=== PATIENT | male | born 1925 | race Caucasian/White ===

== ENCOUNTER → 2017-04-24 | Outpatient (CLI) | payer MEDICARE, BC ==
[2017-04-24 10:01] LABS: ABSOLUTE BASOPHILS # (AUTO) 0.1 10^3/uL (0.0-0.2); ABSOLUTE EOSINOPHILS # (AUTO) 0.2 10^3/uL (0.0-0.6); ABSOLUTE LYMPHOCYTES (AUTO) 1.8 10^3/uL (0.5-4.7); ABSOLUTE MONOCYTES (AUTO) 0.9 10^3/uL (0.1-1.4); BASOPHILS % (AUTO) 1.2 % (0-2); EOSINOPHILS % (AUTO) 2.3 % (0-6); HEMATOCRIT 51.9 % (37.9-51.0); HEMOGLOBIN 17.5 g/dL (13.5-17.0); LYMPHOCYTES % (AUTO) 25.5 % (13-45); MEAN CORPUSCULAR HEMOGLOBIN 31.8 pg (27.0-33.4); MEAN CORPUSCULAR HGB CONC 33.7 g/dL (32.0-36.0); MEAN CORPUSCULAR VOLUME 95 fl (80-97); MONOCYTES % (AUTO) 12.4 % (3-13); PLATELET COUNT 133 10^3/uL (150-450); RED BLOOD COUNT 5.49 10^6/uL (4.35-5.55); RED CELL DISTRIBUTION WIDTH 13.4 % (11.5-14.0); SEGMENTED NEUTROPHILS % (AUTO) 58.6 % (42-78); TOTAL CELLS COUNTED % (AUTO) 100 %; WHITE BLOOD COUNT 6.9 10^3/uL (4.0-10.5)
[2017-04-24 10:26] LABS: ALANINE AMINOTRANSFERASE 18 U/L (21-72); ALBUMIN 4.1 g/dL (3.5-5.0); ALKALINE PHOSPHATASE 86 U/L (38-126); ANION GAP 11 (5-19); ASPARTATE AMINO TRANSFERASE 27 U/L (17-59); BILIRUBIN,DIRECT 0.2 mg/dL (0.0-0.4); BILIRUBIN,TOTAL 0.6 mg/dL (0.2-1.3); BLOOD UREA NITROGEN 22 mg/dL (7-20); CALCIUM 10.1 mg/dL (8.4-10.2); CARBON DIOXIDE 34 mmol/L (22-30); CHLORIDE 97 mmol/L (98-107); CHOLESTEROL 192.26 mg/dL (0-200); GLUCOSE 104 mg/dL (75-110); POTASSIUM 4.2 mmol/L (3.6-5.0); SODIUM 141.8 mmol/L (137-145); TOTAL PROTEIN 6.7 g/dL (6.3-8.2); TRIGLYCERIDES 129 mg/dL (<150)
[2017-04-24 10:38] LABS: DIRECT LDL 114 mg/dL (<100)
== END ==
LOC: OD 08:52
PROVIDERS: ATTEND Internal Medicine
DX: I10 Essential (primary) hypertension (principal); E78.5 Hyperlipidemia, unspecified; I25.10 Atherosclerotic heart disease of native coronary artery without angina pectoris; R53.83 Other fatigue
CPT/HCPCS: 36415; 80053; 80061; 84443; 85025

== ENCOUNTER 2017-04-28 11:15 | Emergency (ER) | payer BC, MEDICARE ==
[2017-04-28 13:29] LABS: ABSOLUTE BASOPHILS # (AUTO) 0.1 10^3/uL (0.0-0.2); ABSOLUTE LYMPHOCYTES (AUTO) 1.3 10^3/uL (0.5-4.7); BASOPHILS % (AUTO) 0.6 % (0-2); EOSINOPHILS % (AUTO) 0.4 % (0-6); HEMATOCRIT 54.7 % (37.9-51.0); HEMOGLOBIN 18.7 g/dL (13.5-17.0); LYMPHOCYTES % (AUTO) 13.4 % (13-45); MEAN CORPUSCULAR HEMOGLOBIN 32.2 pg (27.0-33.4); MEAN CORPUSCULAR HGB CONC 34.1 g/dL (32.0-36.0); MEAN CORPUSCULAR VOLUME 94 fl (80-97); PLATELET COUNT 144 10^3/uL (150-450); RED CELL DISTRIBUTION WIDTH 13.6 % (11.5-14.0); SEGMENTED NEUTROPHILS % (AUTO) 74.6 % (42-78); TOTAL CELLS COUNTED % (AUTO) 100 %; WHITE BLOOD COUNT 9.4 10^3/uL (4.0-10.5)
--- NOTE | 2017-04-28 13:58 | ER Document Report ---
ED General - General Chief Complaint: Rectal Bleeding Stated Complaint: RECTAL BLEEDING Time Seen by Provider: 04/28/17 12:11 Mode of Arrival: Ambulatory Information source: Patient Notes: Patient states that for approximately the past 3 days he has had bright red blood in his stool when he wipes. Patient denies any pain. No abdominal cramping or nausea. He states he has some mild rectal discomfort. It is mainly when he wipes. He states his stools been brown. No black or tarry stool. He has not been dizzy or lightheaded. He does not take any blood thinners. Nothing makes symptoms better or worse. They have been intermittent. They are mild. Did not radiate. He does have a history of hemorrhoids. TRAVEL OUTSIDE OF THE [place] IN LAST 30 DAYS: No - Related Data Allergies/Adverse Reactions: No Known Allergies Allergy (Verified 04/28/17 11:15) Past Medical History - General Information source: Patient - Social History Smoking Status: Former Smoker Frequency of alcohol use: None Drug Abuse: None Family History: Reviewed & Not Pertinent Patient has suicidal ideation: No Patient has homicidal ideation: No - Past Medical History Cardiac Medical History: Reports: Hx Hypertension Pulmonary Medical History: Reports: Hx COPD, Hx Pneumonia Renal/ Medical History: Denies: Hx Peritoneal Dialysis - Immunizations Hx Pneumococcal Vaccination: 01/09/12 Review of Systems - Review of Systems Constitutional: denies: Chills, Fever Cardiovascular: denies: Chest pain, Palpitations Respiratory: denies: Cough, Short of breath -: Yes All other systems reviewed and negative Physical Exam - Vital signs Vitals: Temp Pulse Resp BP Pulse Ox 97.8 F 63 22 H 127/77 H 94 04/28/17 11:37 04/28/17 11:37 04/28/17 11:37 04/28/17 11:37 04/28/17 11:37 Interpretation: Normal - General General appearance: Appears well, Alert - HEENT Head: Normocephalic, Atraumatic Eyes: Normal Pupils: PERRL - Respiratory Respiratory status: No respiratory distress Chest status: Nontender Breath sounds: Normal Chest palpation: Normal - Cardiovascular Rhythm: Regular Heart sounds: Normal auscultation Murmur: No - Abdominal Inspection: Normal Distension: No distension Bowel sounds: Normal Tenderness: Nontender Organomegaly: No organomegaly - Rectal Stool: Bloody Hemorrhoids: External, Other - Patient appears to have a bleeding hemorrhoid rectal exam is otherwise unremarkable. - Back Back: Normal, Nontender - Extremities General upper extremity: Normal inspection, Nontender, Normal color, Normal ROM , Normal temperature General lower extremity: Normal inspection, Nontender, Normal color, Normal ROM , Normal temperature, Normal weight bearing. No: Norma's sign - Neurological Neuro grossly intact: Yes Cognition: Normal Orientation: AAOx4 [place] Coma Scale Eye Opening: Spontaneous [place] Coma Scale Verbal: Oriented Herbert Coma Scale Motor: Obeys Commands [place] Coma Scale Total: 15 Speech: Normal Motor strength normal: LUE, RUE, LLE, RLE Sensory: Normal - Psychological Associated symptoms: Normal affect, Normal mood - Skin Skin Temperature: Warm Skin Moisture: Dry Skin Color: Normal Course - Vital Signs Vital signs: Temp Pulse Resp BP Pulse Ox 97.8 F 63 22 H 127/77 H 94 04/28/17 11:37 04/28/17 11:37 04/28/17 11:37 04/28/17 11:37 04/28/17 11:37 - Laboratory Result Diagrams: 04/28/17 13:05 Laboratory results interpreted by me: 04/28/17 13:05 RBC 5.80 H Hgb 18.7 H Hct 54.7 H Plt Count 144 L Discharge - Discharge Clinical Impression: Hemorrhoids, external Condition: Stable Disposition: HOME, SELF-CARE Instructions: HC Hemorrhoid Cream ([facility]) Prescriptions: Pramoxine HCl/Mineral Oil/Znox [Anusol Ointment] 24 gm RC BID PRN 7 Days oint..gm. PRN Reason:
[2017-04-28 14:05] VITALS: BP 122/82
== END 2017-04-28 14:06 | disposition home or self-care (01) ==
LOC: ER 11:15
DX: K64.4 Residual hemorrhoidal skin tags (principal); I10 Essential (primary) hypertension; J44.9 Chronic obstructive pulmonary disease, unspecified
CPT/HCPCS: 36415; 85025; 99283

== ENCOUNTER 2017-07-07 12:03 | Observation (INO) | payer MEDICARE, BC ==
[2017-07-07 14:10] LABS: ABSOLUTE BASOPHILS # (AUTO) 0.1 10^3/uL (0.0-0.2); ABSOLUTE LYMPHOCYTES (AUTO) 0.8 10^3/uL (0.5-4.7); ABSOLUTE MONOCYTES (AUTO) 1.1 10^3/uL (0.1-1.4); ABSOLUTE NEUT (AUTO) 7.2 10^3/uL (1.7-8.2); BASOPHILS % (AUTO) 0.7 % (0-2); EOSINOPHILS % (AUTO) 0.3 % (0-6); HEMATOCRIT 46.6 % (37.9-51.0); HEMOGLOBIN 15.9 g/dL (13.5-17.0); LYMPHOCYTES % (AUTO) 8.3 % (13-45); MEAN CORPUSCULAR HEMOGLOBIN 31.3 pg (27.0-33.4); MEAN CORPUSCULAR HGB CONC 34.1 g/dL (32.0-36.0); MEAN CORPUSCULAR VOLUME 92 fl (80-97); MONOCYTES % (AUTO) 11.7 % (3-13); PLATELET COUNT 247 10^3/uL (150-450); RED BLOOD COUNT 5.06 10^6/uL (4.35-5.55); RED CELL DISTRIBUTION WIDTH 13.1 % (11.5-14.0); TOTAL CELLS COUNTED % (AUTO) 100 %; WHITE BLOOD COUNT 9.1 10^3/uL (4.0-10.5)
--- NOTE | 2017-07-07 14:28 | RADIOLOGY REPORT (SQ) ---
EXAM DESCRIPTION: CT HEAD WITHOUT COMPLETED DATE/TIME: 07/07/2017 2:07 pm REASON FOR STUDY: headache, visual disturbance, giant cell arteritis COMPARISON: None. TECHNIQUE: Axial images acquired through the brain without intravenous contrast. Images reviewed wi th bone, brain and subdural windows. Additional sagittal and coronal reconstructions were generated. Images stored on PACS. All CT scanners at this facility use dose modulation, iterative reconstruction, and/or weight based d osing when appropriate to reduce radiation dose to as low as reasonably achievable (ALARA). [facility]: Dose Right [facility]: CareDose [facility]: Dose Right [facility]: Teradose 4D [facility]: [employer] RADIATION DOSE: CT Rad equipment meets quality standard of care and radiation dose reduction techniq ues were employed. CTDIvol: 53.2 mGy. DLP: 1017 mGy-cm. mGy. LIMITATIONS: None. FINDINGS: VENTRICLES: Normal size and contour. CEREBRUM: No masses. No hemorrhage. No midline shift. No evidence for acute infarction. Normal gra y/white matter differentiation. No areas of low density in the white matter. CEREBELLUM: No masses. No hemorrhage. No alteration of density. No evidence for acute infarction. EXTRAAXIAL SPACES: No fluid collections. No masses. ORBITS AND GLOBE: No intra- or extraconal masses. Normal contour of globe without masses. CALVARIUM: No fracture. PARANASAL SINUSES: No fluid or mucosal thickening. SOFT TISSUES: No mass or hematoma. OTHER: No other significant finding. IMPRESSION: NORMAL BRAIN CT WITHOUT CONTRAST. EVIDENCE OF ACUTE STROKE: NO. COMMENT: Quality ID # [id number]: Final reports with documentation of one or more dose reduction techniques (e.g., Automated exposure control, adjustment of the mA and/or kV according to patient size, use of iterative reconstruction technique) TECHNICAL DOCUMENTATION: JOB ID: [id number] [employer]- All Rights Reserved Reading location - IP/workstation name: [email or web address]
[2017-07-07 14:33] LABS: ALANINE AMINOTRANSFERASE 32 U/L (21-72); ALBUMIN 3.6 g/dL (3.5-5.0); ALKALINE PHOSPHATASE 93 U/L (38-126); ANION GAP 7 (5-19); ASPARTATE AMINO TRANSFERASE 28 U/L (17-59); BILIRUBIN,DIRECT 0.4 mg/dL (0.0-0.4); BILIRUBIN,TOTAL 0.5 mg/dL (0.2-1.3); BLOOD UREA NITROGEN 17 mg/dL (7-20); C-REACTIVE PROTEIN 54.7 mg/L (<10.0); CALCIUM 10.1 mg/dL (8.4-10.2); CARBON DIOXIDE 35 mmol/L (22-30); CHLORIDE 96 mmol/L (98-107); GLUCOSE 119 mg/dL (75-110); SODIUM 138.4 mmol/L (137-145)
[2017-07-07] MEDS ORDERED: METHYLPREDNISOLONE INJ 125 MG/2 ML SDV IV ONE (14:49)
[2017-07-07 14:50] LABS: ERYTHROCYTE SEDIMENTATION RATE 66 mm/hr (0-20)
--- NOTE | 2017-07-07 14:51 | ER Document Report ---
ED General - General Chief Complaint: Eye Problem Stated Complaint: RIGHT EYE VISION ISSUES Time Seen by Provider: 07/07/17 14:31 Mode of Arrival: Ambulatory Information source: Patient, Dr. Office - Dr. Santiago's office Notes: 89-year-old male presents with complaints of sudden loss of vision of his right eye. Patient notes on he started having symptoms Friday there was blurry vision by today patient had lost vision completely in the right eye, he denies any other complaints except for mild headache Patient seen at eye doctor's office Dr. Rojas send the patient in for evaluation TRAVEL OUTSIDE OF THE [place] IN LAST 30 DAYS: No - HPI Onset: Last week Onset/Duration: Worse Quality of pain: Achy Severity: Mild Pain Level: 1 Associated symptoms: Headache, Other Exacerbated by: Denies Relieved by: Denies Similar symptoms previously: Yes Recently seen / treated by doctor: Yes - Related Data Allergies/Adverse Reactions: No Known Allergies Allergy (Verified 07/07/17 13:01) Past Medical History - Social History Smoking Status: Never Smoker Cigarette use (# per day): No Chew tobacco use (# tins/day): No Smoking Education Provided: No Frequency of alcohol use: None Drug Abuse: None Family History: Reviewed & Not Pertinent Patient has suicidal ideation: No Patient has homicidal ideation: No - Past Medical History Cardiac Medical History: Reports: Hx Hypertension Pulmonary Medical History: Reports: Hx COPD, Hx Pneumonia Renal/ Medical History: Denies: Hx Peritoneal Dialysis - Immunizations Hx Pneumococcal Vaccination: 01/09/12 Review of Systems - Review of Systems Notes: REVIEW OF SYSTEMS: CONSTITUTIONAL : Denies fever, chills, or sweats. Denies recent illness. EENT: Admits to right eye loss of vision CARDIOVASCULAR: Denies chest pain. Denies palpitations or racing or irregular heart beat. Denies ankle edema. RESPIRATORY: Denies cough, cold, or chest congestion. Denies shortness of breath, difficulty breathing, or wheezing. GASTROINTESTINAL: Denies abdominal pain or distention. Denies nausea, vomiting , or diarrhea. Denies blood in vomitus, stools, or per rectum. Denies black, tarry stools. Denies constipation. GENITOURINARY: Denies difficulty urinating, painful urination, burning, frequency, blood in urine, or discharge. MUSCULOSKELETAL: Denies back or neck pain or stiffness. Denies joint pain or swelling. SKIN: Denies rash, lesions or sores. HEMATOLOGIC : Denies easy bruising or bleeding. LYMPHATIC: Denies swollen, enlarged glands. NEUROLOGICAL: Admits to mild headache PSYCHIATRIC: Denies anxiety or stress. Denies depression, suicidal ideation, or homicidal ideation. ALL OTHER SYSTEMS REVIEWED AND NEGATIVE. Dictation was performed using [employer] voice recognition software PHYSICAL EXAMINATION: GENERAL: Well-appearing, well-nourished and in no acute distress. HEAD: Atraumatic, normocephalic. EYES: Pupils equal round and reactive to light, extraocular movements intact, sclera anicteric, conjunctiva are normal. Patient unable to see from the right eye ENT: Nares patent, oropharynx clear without exudates. Moist mucous membranes. NECK: Normal range of motion, supple without lymphadenopathy LUNGS: Breath sounds clear to auscultation bilaterally and equal. No wheezes rales or rhonchi. HEART: Regular rate and rhythm without murmurs ABDOMEN: Soft, nontender, nondistended abdomen. No guarding, no rebound. No masses appreciated. Musculoskeletal: Normal range of motion, no pitting or edema. No cyanosis. NEUROLOGICAL: Cranial nerves grossly intact. Normal speech, normal gait. Normal sensory, motor exams PSYCH: Normal mood, normal affect. SKIN: Warm, Dry, normal turgor, no rashes or lesions noted. Physical Exam - Vital signs Vitals: Temp Pulse Resp BP Pulse Ox 98.4 F 85 16 163/90 H 92 07/07/17 12:26 07/07/17 12:26 07/07/17 12:26 07/07/17 12:26 07/07/17 12:26 Course - Re-evaluation Re-evalutation: 07/07/17 14:50 Pt crp is elevated, spoke with Dr Rojas who requests IV soumedrol 250mg q6 for 12 doses and then dc on 100mg oral daily Dr Pierce paged 07/07/17 19:13 Patient was admitted to the hospitalist service, it appears primary care physician had signed out - Vital Signs Vital signs: Temp Pulse Resp BP Pulse Ox 97.8 F 84 18 151/97 H 94 07/07/17 17:27 07/07/17 17:27 07/07/17 17:27 07/07/17 17:27 07/07/17 17:27 - Laboratory Result Diagrams: 07/07/17 13:46 07/07/17 13:46 Laboratory results interpreted by me: 07/07/17 07/07/17 13:46 13:46 Seg Neutrophils % 79.0 H Lymphocytes % 8.3 L ESR 66 H Chloride 96 L Carbon Dioxide 35 H Glucose 119 H C-Reactive Protein 54.7 H - Diagnostic Test Radiology reviewed: Image reviewed - CT head without contrast notes no acute abnormality, Reports reviewed Discharge - Discharge Clinical Impression: Giant cell arteritis, Loss of vision Condition: Stable Disposition: ADMITTED INPATIENT Admitting Provider: Hospitalist Unit Admitted: Medical Floor
[2017-07-07] MEDS ORDERED: MAG HYDROX/AL HYDROX/SIMETH SUSP 30 ML UDCUP PO PRN (16:43)
[2017-07-07] MEDS ORDERED: ONDANSETRON HCL INJ/PF 4 MG/2 ML SDV IV PRN (16:43)
[2017-07-07] MEDS ORDERED: ACETAMINOPHEN 325 MG TABLET PO PRN (16:43)
[2017-07-07] MEDS ORDERED: IPRATROPIUM/ALBUTEROL 0.5-2.5 MG/3 ML AMPUL NEB PRN (16:43)
[2017-07-07] MEDS ORDERED: MAGNESIUM HYDROXIDE SUSP 30 ML UDCUP PO PRN (16:43)
[2017-07-07] MEDS ORDERED: HYDRALAZINE HCL INJ/PF 20 MG/1 ML SDV IV PRN (16:51)
--- NOTE | 2017-07-07 17:15 | PDOC H&P ---
History of Present Illness Admission Date/PCP: 07/07/17 16:19 VICTOR HUGO MEEKS, Patient complains of: Vision loss to Rt eye History of Present Illness: LARISSA CARRANZA JR is a 89 year old male with a past medical history of COPD, hypertension, arthritis, urinary retention who self caths 3 times daily as needed who presented to the emergency department from his eviction specialist with a report of right-sided vision loss since Friday. His vision loss was preceded by proximally 2 weeks of a frontal headache with right temporal discomfort with talking and chewing. His headache and discomfort have resolved but he continues to have decreased vision to his right eye. He denies fever or chills. The eviction specialist was concerned about potential giant cell arteritis. Therefore his CRP and sed rate were obtained and found to be moderately elevated. A head CT was normal; negative for acute CVA. He is referred to the hospital service for admission to provide IV glucocorticoids per ophthalmology's recommendations. Past Medical History Cardiac Medical History: Reports: Hypertension Denies: Coronary Artery Disease, Myocardial Infarction Pulmonary Medical History: Reports: Chronic Obstructive Pulmonary Disease (COPD) , Pneumonia EENT Medical History: Reports: None Neurological Medical History: Reports: None Endocrine Medical History: Reports: None Renal/ Medical History: Reports: None Malignancy Medical History: Reports: None GI Medical History: Reports: None Musculoskeltal Medical History: Reports: Arthritis Psychiatric Medical History: Reports: None Traumatic Medical History: Reports: None Hematology: Reports: None Infectious Medical History: Reports: None Past Surgical History Past Surgical History: Reports: Other - Prostate Social History Information Source: Patient Lives with: Alone Smoking Status: Former Smoker Cigarettes Packs Per Day: 0.5 Number of Years Smokin Last Time Smoked: 40 Frequency of Alcohol Use: None Hx Recreational Drug Use: No Drugs: None Hx Prescription Drug Abuse: No - Advance Directive Resuscitation Status: Do Not Intubate Surrogate healthcare decision maker:: The patient's son, Victor Hugo Carranza, Family History Family History: Reviewed & Not Pertinent Parental Family History Reviewed: Yes Children Family History Reviewed: Yes Sibling(s) Family History Reviewed.: Yes Medication/Allergy Home Medications: Aspirin [Aspirin 81 mg Chewable Tablet] 81 mg PO DAILY 07/07/17 Atenolol [Tenormin] 25 mg PO QHS 07/07/17 Finasteride [Proscar 5 mg Tablet] 5 mg PO QHS 07/07/17 Multivitamin [Tab-A-Marylou] 1 tab PO DAILY 07/07/17 Triamterene/Hydrochlorothiazid [Triamterene-Hctz 37.5-25 mg Tb] 1 tab PO DAILY 07/07/17 Allergies/Adverse Reactions: No Known Allergies Allergy (Verified 07/07/17 13:01) Review of Systems Constitutional: PRESENT: as per HPI, headache(s). ABSENT: chills, fever(s), weight gain, weight loss Eyes: PRESENT: as per HPI, visual disturbances Ears: ABSENT: hearing changes Nose, Mouth, and Throat: PRESENT: headache(s) Cardiovascular: ABSENT: chest pain, dyspnea on exertion, edema, orthropnea, palpitations Respiratory: ABSENT: cough, hemoptysis Gastrointestinal: ABSENT: abdominal pain, constipation, diarrhea, hematemesis, hematochezia, nausea, vomiting Genitourinary: ABSENT: dysuria, hematuria Musculoskeletal: ABSENT: joint swelling Integumentary: ABSENT: rash, wounds Neurological: ABSENT: abnormal gait, abnormal speech, confusion, dizziness, focal weakness, syncope Psychiatric: ABSENT: anxiety, depression, homidical ideation, suicidal ideation Endocrine: ABSENT: cold intolerance, heat intolerance, polydipsia, polyuria Hematologic/Lymphatic: ABSENT: easy bleeding, easy bruising Physical Exam Vital Signs: Temp Pulse Resp BP Pulse Ox 98.4 F 85 16 163/90 H 92 07/07/17 12:26 07/07/17 12:26 07/07/17 12:26 07/07/17 12:26 07/07/17 12:26 General appearance: PRESENT: no acute distress, well-developed, well-nourished, other - Overweight Head exam: PRESENT: atraumatic, normocephalic Eye exam: PRESENT: conjunctiva pink, EOMI, PERRLA, other - Bilateral lower eye bags. ABSENT: scleral icterus Ear exam: PRESENT: normal external ear exam Mouth exam: PRESENT: moist, tongue midline Neck exam: ABSENT: carotid bruit, JVD, lymphadenopathy, thyromegaly Respiratory exam: PRESENT: clear to auscultation nimesh, symmetrical, unlabored. ABSENT: rales, rhonchi, wheezes Cardiovascular exam: PRESENT: RRR, +S1, +S2. ABSENT: diastolic murmur, rubs, systolic murmur Pulses: PRESENT: normal dorsalis pedis pul Vascular exam: PRESENT: normal capillary refill GI/Abdominal exam: PRESENT: normal bowel sounds, soft. ABSENT: distended, guarding, mass, organolmegaly, rebound, tenderness Rectal exam: PRESENT: deferred Extremities exam: PRESENT: full ROM. ABSENT: calf tenderness, clubbing, pedal edema Neurological exam: PRESENT: alert, awake, oriented to person, oriented to place , oriented to time, oriented to situation, CN II-XII grossly intact. ABSENT: motor sensory deficit Psychiatric exam: PRESENT: appropriate affect, normal mood. ABSENT: homicidal ideation, suicidal ideation Skin exam: PRESENT: dry, intact, warm. ABSENT: cyanosis, rash Results Impressions: Head CT 07/07/17 13:12 IMPRESSION: NORMAL BRAIN CT WITHOUT CONTRAST. EVIDENCE OF ACUTE STROKE: NO. Assessment & Plan - Diagnosis (1) Giant cell arteritis Is this a current diagnosis for this admission?: Yes Plan: The patient is admitted with symptoms concerning for giant cell arteritis. He is noted to have an elevated sed rate of 66 and CRP of 54.7. The patient was sent from his opthamologist, Dr. Rojas for IV steroids. CT of the head is normal; no evidence of acute stroke. The patient will be admitted to the medical floor. He will be provided IV Solu-Medrol 250 mg every 6 hours 12 hours. I did speak with the on-call eviction specialist, Dr. Jackson, who did not recommend any additional workup. He does advise that the patient could be discharged following 24 hours of IV therapy with close follow-up for temporal artery biopsy and p.o. steroids. I spoke with Dr. Harris; he reports that temporal artery biopsies are not typically done inpatient, but he would be happy to conduct the procedure in the office once the patient has been discharged. The patient is ordered antiemetics as needed. Tylenol as needed for discomfort. Fall precautions. On discharge, the patient should be prescribed prednisone 100 mg p.o. daily until follow up wit opthamology. (2) Loss of vision Is this a current diagnosis for this admission?: Yes Plan: Secondary to #1. Plan as above. (3) Hypertension Is this a current diagnosis for this admission?: Yes Plan: We will continue the patient's home regiment with the exception of atenolol, which the patient states he has recently been instructed to discontinue. IV hydralazine is available as needed for blood pressure control. (4) Urinary retention Is this a current diagnosis for this admission?: Yes Plan: Continue Proscar. The patient may continue self cath every 8 hours as needed. - Time Time Spent: 50 to 70 Minutes Medications reviewed and adjusted accordingly: Yes Anticipated discharge: Home Within: within 72 hours - Inpatient Certification Based on my medical assessment, after consideration of the patient's comorbidities, presenting symptoms, or acuity I expect that the services needed warrant INPATIENT care.: Yes I certify that my determination is in accordance with my understanding of Medicare's requirements for reasonable and necessary INPATIENT services [42 CFR 412.3e].: Yes Medical Necessity: Other - IV steroids
[2017-07-07] MEDS: METHYLPREDNISOLONE INJ 125 MG/2 ML SDV IV SCH (21:57)
[2017-07-07] MEDS: FINASTERIDE 5 MG TABLET PO SCH (21:57)
[2017-07-07] MEDS: HEPARIN SOD (PORCINE) 5,000 UNIT/ML 1 ML SYRINGE SUBCUT SCH (21:58)
[2017-07-08] MEDS: HEPARIN SOD (PORCINE) 5,000 UNIT/ML 1 ML SYRINGE SUBCUT SCH ×3 (05:15→21:56)
[2017-07-08] MEDS: METHYLPREDNISOLONE INJ 125 MG/2 ML SDV IV SCH ×3 (05:15→17:16)
[2017-07-08 06:28] LABS: ABSOLUTE LYMPHOCYTES (AUTO) 0.7 10^3/uL (0.5-4.7); ABSOLUTE MONOCYTES (AUTO) 0.1 10^3/uL (0.1-1.4); ABSOLUTE NEUT (AUTO) 5.2 10^3/uL (1.7-8.2); BASOPHILS % (AUTO) 0.2 % (0-2); HEMATOCRIT 44.9 % (37.9-51.0); HEMOGLOBIN 15.2 g/dL (13.5-17.0); MEAN CORPUSCULAR HEMOGLOBIN 31.1 pg (27.0-33.4); MEAN CORPUSCULAR HGB CONC 33.8 g/dL (32.0-36.0); MEAN CORPUSCULAR VOLUME 92 fl (80-97); MONOCYTES % (AUTO) 1.7 % (3-13); PLATELET COUNT 214 10^3/uL (150-450); RED BLOOD COUNT 4.88 10^6/uL (4.35-5.55); RED CELL DISTRIBUTION WIDTH 13.2 % (11.5-14.0); SEGMENTED NEUTROPHILS % (AUTO) 87.1 % (42-78); TOTAL CELLS COUNTED % (AUTO) 100 %; WHITE BLOOD COUNT 5.9 10^3/uL (4.0-10.5)
[2017-07-08 06:47] LABS: ANION GAP 11 (5-19); BLOOD UREA NITROGEN 16 mg/dL (7-20); CALCIUM 9.7 mg/dL (8.4-10.2); CARBON DIOXIDE 32 mmol/L (22-30); CHLORIDE 96 mmol/L (98-107); GLUCOSE 153 mg/dL (75-110); SODIUM 138.5 mmol/L (137-145)
[2017-07-08] MEDS: MULTIVITAMIN TABLET PO SCH (10:46)
[2017-07-08] MEDS: DOCUSATE SODIUM 100 MG CAPSULE PO SCH (10:46)
[2017-07-08] MEDS: ASPIRIN 81 MG TABLET, CHEWABLE PO SCH (10:47)
[2017-07-08] MEDS: TRIAMTERENE/HYDROCHLOROTHIAZIDE 37.5-25 MG TABLET PO SCH (10:47)
[2017-07-08] MEDS: PANTOPRAZOLE SODIUM 40 MG VIAL IV SCH (10:47)
[2017-07-08] MEDS ORDERED: METHYLPREDNISOLONE INJ 125 MG/2 ML SDV IV SCH (12:00)
[2017-07-08] MEDS ORDERED: ALPRAZOLAM 0.25 MG TABLET PO PRN (12:07)
--- NOTE | 2017-07-08 15:50 | PDOC PROGRESS REPORT ---
Subjective Progress Note for:: 07/08/17 Subjective:: LARISSA LORENZANA JR is a 89 year old male with a past medical history of COPD, HTN, arthritis, urinary retention (self catheterization TID PRN) presented to the ED from his cuff setter overlock with a report of right-sided vision loss since Friday. His vision loss was preceded by approximately 2 weeks of a frontal headache with R temporal discomfort with talking and chewing. His headache and discomfort have resolved but he continues to have decreased vision to his right eye. He denies fever or chills. The cuff setter overlock was concerned about potential giant cell arteritis. CRP and sed rate were found to be moderately elevated. A head CT was normal; negative for acute CVA. He is referred to the hospital service for admission to provide IV glucocorticoids per ophthalmology's recommendations. The patient was seen this morning on rounds. He was complaining of R eye blurry vision, he is able to distinguish large shapes, but nothing else. When both eyes are open, he is able to compensate, but his gait is a little unsteady as a result. The patient will receive Solu-medrol 250mg IV q6hr today for 24 hours ( did not receive full 1 gram yesterday). Plan to discharge tomorrow morning. Reason For Visit: GIANT CELL ARTERITIS Physical Exam Vital Signs: Temp Pulse Resp BP Pulse Ox 97.6 F 97 16 153/87 H 97 07/07/17 23:05 07/08/17 14:22 07/08/17 14:22 07/08/17 11:31 07/08/17 14:22 Intake & Output 07/07/17 07/08/17 07/09/17 06:59 06:59 06:59 Intake Total 40 Balance 40 Weight 90.8 kg General appearance: PRESENT: no acute distress Eye exam: PRESENT: conjunctiva pink. ABSENT: PERRLA - 3mm R pupil sluggish to react to light. 3mm L pupil brisk reaction to light. Mouth exam: PRESENT: moist Neck exam: PRESENT: full ROM Respiratory exam: PRESENT: clear to auscultation nimesh, symmetrical, unlabored Pulses: PRESENT: normal radial pulses, normal dorsalis pedis pul Vascular exam: PRESENT: normal capillary refill GI/Abdominal exam: PRESENT: normal bowel sounds, soft. ABSENT: tenderness Rectal exam: PRESENT: deferred Extremities exam: PRESENT: full ROM, +1 edema - generalized Musculoskeletal exam: PRESENT: ambulatory, full ROM Neurological exam: PRESENT: alert, awake, oriented to person, oriented to place , oriented to time, oriented to situation, normal gait Psychiatric exam: PRESENT: anxious - patient reports feeling anxious, his hands are visibly trembling, appropriate affect Results Laboratory Results: 07/08/17 05:11 07/08/17 05:11 07/08/17 07/08/17 05:11 05:11 WBC 5.9 RBC 4.88 Hgb 15.2 Hct 44.9 MCV 92 MCH 31.1 MCHC 33.8 RDW 13.2 Plt Count 214 Seg Neutrophils % 87.1 H Lymphocytes % 11.0 L Monocytes % 1.7 L Eosinophils % 0.0 Basophils % 0.2 Absolute Neutrophils 5.2 Absolute Lymphocytes 0.7 Absolute Monocytes 0.1 Absolute Eosinophils 0.0 Absolute Basophils 0.0 Sodium 138.5 Potassium 4.0 Chloride 96 L Carbon Dioxide 32 H Anion Gap 11 BUN 16 Creatinine 0.80 Est GFR ( Amer) > 60 Est GFR (Non-Af Amer) > 60 Glucose 153 H Calcium 9.7 Impressions: Head CT 07/07/17 13:12 IMPRESSION: NORMAL BRAIN CT WITHOUT CONTRAST. EVIDENCE OF ACUTE STROKE: NO. Assessment & Plan - Diagnosis (1) Giant cell arteritis Is this a current diagnosis for this admission?: Yes Plan: The patient is admitted with symptoms concerning for giant cell arteritis. He is noted to have an elevated sed rate of 66 and CRP of 54.7. The patient was sent from his opthamologist, Dr. Rojas for IV steroids. CT of the head is normal; no evidence of acute stroke. The patient will be admitted to the medical floor. He will be provided IV Solu-Medrol 250 mg every [address] Jackson, on-call cuff setter overlock, did not recommend any additional workup. He does advise that the patient could be discharged following 24 hours of IV therapy with close follow-up for temporal artery biopsy and p.o. steroids. Dr. Harris reports that temporal artery biopsies are not typically done inpatient, but he would be happy to conduct the procedure in the office once the patient has been discharged. The patient is ordered antiemetics as needed. Tylenol as needed for discomfort. Fall precautions. On discharge, the patient should be prescribed prednisone 100 mg p.o. daily until follow up with opthamology. (2) Loss of vision Is this a current diagnosis for this admission?: Yes Plan: Plan as above (#1) (3) Hypertension Is this a current diagnosis for this admission?: Yes Plan: We will continue the patient's home regiment with the exception of atenolol, which the patient states he has recently been instructed to discontinue. IV hydralazine is available as needed for blood pressure control. (4) Urinary retention Is this a current diagnosis for this admission?: Yes Plan: Continue home dose Proscar. Patient allowed to self cath q8hr as needed (5) Anxiety Is this a current diagnosis for this admission?: Yes Plan: The patient reports feeling of anxiety. Per nursing staff, his hands are visibly trembling. The patient denies ETOH use, states the last time he ingested alcohol was over 1 yr ago Initiate low dose xanax 0.25mg PO q6hr - Time Time Spent with patient: 15-24 minutes Medications reviewed and adjusted accordingly: Yes Anticipated discharge: Home - Inpatient Certification Based on my medical assessment, after consideration of the patient's comorbidities, presenting symptoms, or acuity I expect that the services needed warrant INPATIENT care.: Yes I certify that my determination is in accordance with my understanding of Medicare's requirements for reasonable and necessary INPATIENT services [42 CFR 412.3e].: Yes Medical Necessity: Need for Pain Control - Plan Summary Plan Summary: Ultimately, the plan is to discharge the patient home with very close follow up to surgeon's office for a temporal artery biopsy
[2017-07-08] MEDS: FINASTERIDE 5 MG TABLET PO SCH (21:56)
[2017-07-09] MEDS: METHYLPREDNISOLONE INJ 125 MG/2 ML SDV IV SCH ×5 (00:01→22:59)
[2017-07-09] MEDS: HEPARIN SOD (PORCINE) 5,000 UNIT/ML 1 ML SYRINGE SUBCUT SCH ×3 (05:08→21:23)
[2017-07-09 06:43] LABS: ABSOLUTE BASOPHILS # (AUTO) 0.1 10^3/uL (0.0-0.2); ABSOLUTE LYMPHOCYTES (AUTO) 0.9 10^3/uL (0.5-4.7); ABSOLUTE MONOCYTES (AUTO) 0.4 10^3/uL (0.1-1.4); ABSOLUTE NEUT (AUTO) 15.6 10^3/uL (1.7-8.2); BASOPHILS % (AUTO) 0.5 % (0-2); HEMATOCRIT 45.8 % (37.9-51.0); HEMOGLOBIN 15.3 g/dL (13.5-17.0); LYMPHOCYTES % (AUTO) 5.2 % (13-45); MEAN CORPUSCULAR HEMOGLOBIN 30.5 pg (27.0-33.4); MEAN CORPUSCULAR HGB CONC 33.4 g/dL (32.0-36.0); MEAN CORPUSCULAR VOLUME 92 fl (80-97); MONOCYTES % (AUTO) 2.6 % (3-13); PLATELET COUNT 242 10^3/uL (150-450); RED BLOOD COUNT 5.01 10^6/uL (4.35-5.55); RED CELL DISTRIBUTION WIDTH 13.2 % (11.5-14.0); SEGMENTED NEUTROPHILS % (AUTO) 91.7 % (42-78); TOTAL CELLS COUNTED % (AUTO) 100 %
[2017-07-09 06:46] LABS: ANION GAP 12 (5-19); BLOOD UREA NITROGEN 22 mg/dL (7-20); CALCIUM 9.7 mg/dL (8.4-10.2); CARBON DIOXIDE 33 mmol/L (22-30); CHLORIDE 94 mmol/L (98-107); GLUCOSE 138 mg/dL (75-110)
--- NOTE | 2017-07-09 08:14 | PDOC DISCHARGE SUMMARY ---
General - Admit/Disc Date/PCP Admission Date/Primary Care Provider: 07/07/17 16:19 EVELYN MEEKS, Discharge Date: 07/09/17 - Discharge Diagnosis (1) Giant cell arteritis Is this a current diagnosis for this admission?: Yes Summary: Continue p.o. prednisone. Follow-up with surgery for biopsy in the morning. Follow-up with ophthalmology Dr. Rojas (2) Hypertension Is this a current diagnosis for this admission?: Yes Summary: Continue current medications (3) Loss of vision Is this a current diagnosis for this admission?: Yes Summary: Follow-up with ophthalmology - Additional Information Resuscitation Status: Do Not Intubate Discharge Diet: As Tolerated Discharge Activity: Activity As Tolerated Prescriptions: Prednisone [Deltasone 20 mg Tablet] 100 mg PO DAILY #60 tablet Home Medications: Aspirin [Aspirin 81 mg Chewable Tablet] 81 mg PO DAILY 07/07/17 Atenolol [Tenormin] 25 mg PO QHS 07/07/17 Finasteride [Proscar 5 mg Tablet] 5 mg PO QHS 07/07/17 Multivitamin [Tab-A-Marylou] 1 tab PO DAILY 07/07/17 Triamterene/Hydrochlorothiazid [Triamterene-Hctz 37.5-25 mg Tb] 1 tab PO DAILY 07/07/17 Prednisone [Deltasone 20 mg Tablet] 100 mg PO DAILY #60 tablet 07/09/17 History of Present Illness History of Present Illness: LARISSA LORENZANA JR is a 89 year old male Hospital Course Hospital Course: The patient was admitted directly from the emergency room because of possibility of temporal arteritis. He has received IV Solu-Medrol 250 mg 6 doses. Report reviewed of the hospitalist discussing with Dr. Gonzales to discharge patient on 100 mg p.o. daily of prednisone. He did quite well over the next 24 hours. There has not been significant change in his vision in the right eye but the left eye was stable and patient will be discharged home. Physical Exam Vital Signs: Temp Pulse Resp BP Pulse Ox 97.6 F 78 18 142/94 H 97 07/09/17 07:32 07/09/17 07:32 07/09/17 07:32 07/09/17 07:32 07/09/17 07:32 Intake & Output 07/08/17 07/09/17 07/10/17 06:59 06:59 06:59 Intake Total 40 462 Balance 40 462 Weight 90.8 kg 90.2 kg General appearance: PRESENT: no acute distress Head exam: PRESENT: atraumatic Eye exam: PRESENT: conjunctival injection Neck exam: PRESENT: carotid bruit Respiratory exam: PRESENT: rhonchi Cardiovascular exam: PRESENT: RRR, +S1, +S2 Pulses: PRESENT: +1 pedal pulses bilateral GI/Abdominal exam: PRESENT: normal bowel sounds, soft Extremities exam: PRESENT: full ROM Musculoskeletal exam: PRESENT: ambulatory Results Laboratory Results: 07/09/17 05:33 07/09/17 05:33 07/09/17 07/09/17 05:33 05:33 WBC 17.0 H D RBC 5.01 Hgb 15.3 Hct 45.8 MCV 92 MCH 30.5 MCHC 33.4 RDW 13.2 Plt Count 242 Seg Neutrophils % 91.7 H Lymphocytes % 5.2 L Monocytes % 2.6 L Eosinophils % 0.0 Basophils % 0.5 Absolute Neutrophils 15.6 H Absolute Lymphocytes 0.9 Absolute Monocytes 0.4 Absolute Eosinophils 0.0 Absolute Basophils 0.1 Sodium 139.0 Potassium 4.0 Chloride 94 L Carbon Dioxide 33 H Anion Gap 12 BUN 22 H Creatinine 0.93 Est GFR ( Amer) > 60 Est GFR (Non-Af Amer) > 60 Glucose 138 H Calcium 9.7 Impressions: Head CT 07/07/17 13:12 IMPRESSION: NORMAL BRAIN CT WITHOUT CONTRAST. EVIDENCE OF ACUTE STROKE: NO. Qualifiers - * PATIENT BEING DISCHARGED WITH ANY OF THE FOLLOWING DIAGNOSIS: No
[2017-07-09] MEDS ORDERED: PREDNISONE 20 MG TABLET PO SCH (10:00)
[2017-07-09] MEDS: MULTIVITAMIN TABLET PO SCH (10:03)
[2017-07-09] MEDS: DOCUSATE SODIUM 100 MG CAPSULE PO SCH (10:03)
[2017-07-09] MEDS: ASPIRIN 81 MG TABLET, CHEWABLE PO SCH (10:04)
[2017-07-09] MEDS: TRIAMTERENE/HYDROCHLOROTHIAZIDE 37.5-25 MG TABLET PO SCH (10:04)
[2017-07-09] MEDS: PANTOPRAZOLE SODIUM 40 MG VIAL IV SCH (10:05)
[2017-07-09] MEDS: FINASTERIDE 5 MG TABLET PO SCH (21:22)
[2017-07-09] MEDS ORDERED: (PENDING PHARMACY ID) (Atenolol [Tenormin] 25 MG) PO SCH (22:00)
[2017-07-09] MEDS ORDERED: ATENOLOL 50 MG TABLET PO SCH (22:00)
[2017-07-10] MEDS: METHYLPREDNISOLONE INJ 125 MG/2 ML SDV IV SCH ×3 (05:08→17:25)
[2017-07-10] MEDS: HEPARIN SOD (PORCINE) 5,000 UNIT/ML 1 ML SYRINGE SUBCUT SCH ×2 (05:08→14:04)
[2017-07-10 06:39] LABS: HEMATOCRIT 43.7 % (37.9-51.0); HEMOGLOBIN 14.8 g/dL (13.5-17.0); MEAN CORPUSCULAR HGB CONC 33.9 g/dL (32.0-36.0); MEAN CORPUSCULAR VOLUME 91 fl (80-97); PLATELET COUNT 248 10^3/uL (150-450); RED BLOOD COUNT 4.78 10^6/uL (4.35-5.55); RED CELL DISTRIBUTION WIDTH 13.1 % (11.5-14.0); WHITE BLOOD COUNT 17.8 10^3/uL (4.0-10.5)
[2017-07-10 06:50] LABS: ANION GAP 10 (5-19); BLOOD UREA NITROGEN 26 mg/dL (7-20); CALCIUM 9.1 mg/dL (8.4-10.2); CARBON DIOXIDE 34 mmol/L (22-30); CHLORIDE 95 mmol/L (98-107); GLUCOSE 154 mg/dL (75-110); SODIUM 139.4 mmol/L (137-145)
[2017-07-10 06:54] LABS: POTASSIUM 3.7 mmol/L (3.6-5.0)
[2017-07-10 07:05] LABS: ABSOLUTE LYMPHOCYTES# (MANUAL) 0.4 10^3/uL (0.5-4.7); ABSOLUTE MONOCYTES # (MANUAL) 0.7 10^3/uL (0.1-1.4); ABSOLUTE NEUTROPHILS# (MANUAL) 16.7 10^3/uL (1.7-8.2); BAND NEUTROPHILS % (MANUAL) 7 % (3-5); BASOPHILS % (MANUAL) 0 % (0-2); EOSINOPHILS % (MANUAL) 0 % (0-6); LYMPHOCYTES % (MANUAL) 2 % (13-45); MONOCYTES % (MANUAL) 4 % (3-13); SEGMENTED NEUTROPHILS % (MAN) 87 % (42-78); TOTAL CELLS COUNTED 100
[2017-07-10 07:06] LABS: PLATELET COMMENT ADEQUATE; RBC MORPHOLOGY COMMENT NORMO-CYTIC/CHROMIC
--- NOTE | 2017-07-10 08:26 | PDOC PROGRESS REPORT ---
Subjective Progress Note for:: 07/10/17 Subjective:: The patient states to feel well. Unfortunately he could not be discharged yesterday because of miscommunication and the need to complete 12 doses of Solu-Medrol IV. He will be discharged today after his last dose of Solu-Medrol as discussed with Dr. Rojas and he will continue on 100 mg of prednisone and have a temporal artery biopsy on Friday Reason For Visit: GIANT CELL ARTERITIS Physical Exam Vital Signs: Temp Pulse Resp BP Pulse Ox 97.6 F 62 17 139/88 H 98 07/09/17 23:22 07/09/17 23:22 07/09/17 23:22 07/09/17 23:22 07/09/17 23:22 Intake & Output 07/09/17 07/10/17 07/11/17 06:59 06:59 06:59 Intake Total 462 880 Balance 462 880 Weight 90.2 kg 91 kg General appearance: PRESENT: no acute distress Head exam: PRESENT: atraumatic Eye exam: PRESENT: conjunctival injection Neck exam: PRESENT: carotid bruit Respiratory exam: PRESENT: clear to auscultation nimesh Cardiovascular exam: PRESENT: RRR, +S1, +S2 Pulses: PRESENT: +1 pedal pulses bilateral GI/Abdominal exam: PRESENT: normal bowel sounds, soft Extremities exam: PRESENT: full ROM Musculoskeletal exam: PRESENT: ambulatory Neurological exam: PRESENT: alert, awake Results Laboratory Results: 07/10/17 06:06 07/10/17 06:06 07/10/17 07/10/17 06:06 06:06 WBC 17.8 H RBC 4.78 Hgb 14.8 Hct 43.7 MCV 91 MCH 31.0 MCHC 33.9 RDW 13.1 Plt Count 248 Seg Neutrophils % Not Reportable Lymphocytes % Not Reportable Monocytes % Not Reportable Eosinophils % Not Reportable Basophils % Not Reportable Absolute Neutrophils Not Reportable Absolute Lymphocytes Not Reportable Absolute Monocytes Not Reportable Absolute Eosinophils Not Reportable Absolute Basophils Not Reportable Sodium 139.4 Potassium 3.7 Chloride 95 L Carbon Dioxide 34 H Anion Gap 10 BUN 26 H Creatinine 1.02 Est GFR ( Amer) > 60 Est GFR (Non-Af Amer) > 60 Glucose 154 H Calcium 9.1 Impressions: Head CT 07/07/17 13:12 IMPRESSION: NORMAL BRAIN CT WITHOUT CONTRAST. EVIDENCE OF ACUTE STROKE: NO. Assessment & Plan - Diagnosis (1) Giant cell arteritis Is this a current diagnosis for this admission?: Yes Plan: Complete 12 doses of Solu-Medrol 250 IV. Start prednisone p.o. 100 mg daily (2) Hypertension Is this a current diagnosis for this admission?: Yes Plan: Continue current medications (3) Loss of vision Is this a current diagnosis for this admission?: Yes Plan: Temporal artery biopsy. Prednisone. Follow-up with ophthalmology
[2017-07-10] MEDS ORDERED: LANSOPRAZOLE 30 MG TAB.RAP.DR PO ONE (09:00)
[2017-07-10] MEDS ORDERED: ONDANSETRON HCL INJ/PF 4 MG/2 ML SDV IV PRN (09:00)
[2017-07-10] MEDS: DOCUSATE SODIUM 100 MG CAPSULE PO SCH (09:15)
[2017-07-10] MEDS: MULTIVITAMIN TABLET PO SCH (09:19)
[2017-07-10] MEDS: ASPIRIN 81 MG TABLET, CHEWABLE PO SCH (09:19)
[2017-07-10] MEDS: TRIAMTERENE/HYDROCHLOROTHIAZIDE 37.5-25 MG TABLET PO SCH (09:19)
[2017-07-10 17:38] VITALS: BP 151/71
[2017-07-11] MEDS ORDERED: LANSOPRAZOLE 30 MG TAB.RAP.DR PO SCH (06:00)
== END 2017-07-10 17:58 | disposition home or self-care (01) ==
LOC: ER 12:03 → EH 16:19 → INTOOBSV 16:19 → 4S 18:47
PROVIDERS: ADMIT Internal Medicine; ATTEND Internal Medicine
DX: M31.6 Other giant cell arteritis (principal); I10 Essential (primary) hypertension; H54.61 Unqualified visual loss, right eye, normal vision left eye; R33.9 Retention of urine, unspecified; R26.81 Unsteadiness on feet; H53.8 Other visual disturbances; R60.0 Localized edema; F41.9 Anxiety disorder, unspecified; Z87.891 Personal history of nicotine dependence; Z79.899 Other long term (current) drug therapy; Z79.82 Long term (current) use of aspirin
CPT/HCPCS: 99285; 96374; 36415 ×4; 82962; 85025 ×4; 85652; 86140; 80048 ×3; 80053; 70450; 97167; A9270 ×18; J1644 ×4; J2930 ×4; C9113 ×2; J3490 ×4; G8987; G8988; G8989; G0378; J7512; S0164

== ENCOUNTER 2017-07-17 10:27 | Day surgery (SDC) | payer MEDICARE, BC ==
[~2017-07-17 10:27] MED LIST: DEXTROSE 5%-1/2 NORMAL SALINE 1,000 ML IV PRN
[2017-07-17 11:44] LABS: HEMATOCRIT 53.6 % (37.9-51.0); HEMOGLOBIN 17.8 g/dL (13.5-17.0); MEAN CORPUSCULAR HEMOGLOBIN 30.3 pg (27.0-33.4); MEAN CORPUSCULAR HGB CONC 33.1 g/dL (32.0-36.0); MEAN CORPUSCULAR VOLUME 91 fl (80-97); PLATELET COUNT 259 10^3/uL (150-450); RED BLOOD COUNT 5.87 10^6/uL (4.35-5.55); RED CELL DISTRIBUTION WIDTH 13.9 % (11.5-14.0); WHITE BLOOD COUNT 21.3 10^3/uL (4.0-10.5)
[2017-07-17] MEDS ORDERED: LIDOCAINE 2% INJ-PF (20 MG/ML) 10 ML AMPUL ONE (11:57)
[2017-07-17] MEDS ORDERED: MIDAZOLAM 2 MG/2 ML INJ ONE (11:58)
[2017-07-17] MEDS ORDERED: FENTANYL CITRATE INJ/PF 100 MCG/2 ML AMPUL ONE (11:58)
[2017-07-17] MEDS ORDERED: PROPOFOL INJ 200 MG/20 ML VIAL IV ONE (11:58)
[2017-07-17 12:01] LABS: ANION GAP 10 (5-19); BLOOD UREA NITROGEN 39 mg/dL (7-20); CALCIUM 9.2 mg/dL (8.4-10.2); CARBON DIOXIDE 37 mmol/L (22-30); CHLORIDE 92 mmol/L (98-107); GLUCOSE 102 mg/dL (75-110); POTASSIUM 3.5 mmol/L (3.6-5.0); SODIUM 138.8 mmol/L (137-145)
[2017-07-17] MEDS: BUPIVACAINE HCL 0.25 % INJ/PF (2.5 MG/1 ML) 30 ML VIAL ONE ×2 (12:41→12:50)
[2017-07-17] MEDS: LIDOCAINE 0.5% INJ-PF (5 MG/ML) 50 ML SDV ONE ×2 (12:42→12:50)
[2017-07-17] MEDS ORDERED: DIPHENHYDRAMINE HCL 50 MG/ML VIAL IV PRN (12:56)
[2017-07-17] MEDS ORDERED: PROMETHAZINE HCL INJ 25 MG/1 ML VIAL IV PRN ×2 (12:56)
[2017-07-17] MEDS ORDERED: OXYCODONE-ACETAMINOPHEN 5-325 MG TABLET PO PRN ×2 (12:56)
[2017-07-17] MEDS ORDERED: MORPHINE SULFATE 10 MG/ML INJ IV PRN (12:56)
[2017-07-17] MEDS ORDERED: ONDANSETRON HCL INJ/PF 4 MG/2 ML SDV IV PRN (12:56)
[2017-07-17] MEDS ORDERED: FENTANYL CITRATE INJ/PF 100 MCG/2 ML AMPUL IV PRN ×3 (12:56)
[2017-07-17] MEDS ORDERED: MEPERIDINE HCL/PF INJ 25 MG/1 ML DISP.SYRIN IV PRN (12:56)
--- NOTE | 2017-07-17 13:28 | Discharge Summary ---
Discharge Summary (SDC) - Discharge Final Diagnosis: #1 blindness and headache. 2. COPD. 3. Hypertension. Date of Surgery: 07/17/17 Discharge Date: 07/17/17 Condition: Fair Treatment or Instructions: Discharge home [after recovery per ASU criteria]. Diet ,,as tolerated, when fully awake advance as tolerated. Activities within moderation encouraged. Follow up in my office by appointment in about [1 week]. Call for appointment. Leave wounds [covered], [keep clean and dry, until office visit in 1 week]. Meds per med rec. OTC pain meds. Hold of on school/work [until evaluation in office]. May shower [in 48 hrs], [try to keep operated area as dry as possible]. Referrals: EVELYN MEEKS MD [Primary Care Provider] - Discharge Diet: As Tolerated Respiratory Treatments at Home: Deep Breathing/Coughing Discharge Activity: Activity As Tolerated Report the Following to Your Physician Immediately: Shortness of Breath, Unusual Bleeding
--- NOTE | 2017-07-17 13:30 | Operative Report ---
Operative Report DATE OF SURGERY: 07/17/17 PREOPERATIVE DIAGNOSIS: #1 blindness and headache. 2. COPD. 3. Hypertension. POSTOPERATIVE DIAGNOSIS: #1 blindness and headache. 2. COPD. 3. Hypertension. OPERATION: Right temporal artery biopsy. SURGEON: CHAN BELLA OPTOMETRIST: None. ANESTHESIA: LMAC TISSUE REMOVED OR ALTERED: Portion of right temporal artery. COMPLICATIONS: None. ESTIMATED BLOOD LOSS: 2 mL. INTRAOPERATIVE FINDINGS: Of a thick-walled and probably atherosclerotic temporal artery. A segment about 2.5 cm long was harvested and submitted for pathology. Fresh. PROCEDURE: PROCEDURE: The right temporal area was prepared with Betadine and draped out with sterile linen. After the"universal time-out", in which it was confirmed that the patient [did not need antibiotic], the procedure commenced. The patient was appropriately anesthetized. The topographic location of the temporal artery was identified using a Doppler instrument and also palpation. It was marked in ink.. A dilute solution of local anesthesia was generously infiltrated in the skin and subcutaneous tissues above and around the area. An incision was made as marked. This went through to the subcutaneous tissues. Dissection now proceeded By spreading a hemostat to reveal the artery beneath the fascia. The artery was dissected out for a distance of about 2.5 cm. Both ends were clamped. The intervening section was excised and carefully submitted for pathology in formalin. Both ends were now suture ligated using 5-0 Prolene suture The wound was now closed using [a single layer of continuous sutures. These were of 5-0 Prolene. A sterile dressing was applied and the procedure concluded.
--- NOTE | 2017-07-17 13:34 | EKG REPORT ---
SEVERITY:- ABNORMAL ECG - SINUS RHYTHM VENTRICULAR TRIGEMINY RIGHT BUNDLE BRANCH BLOCK : Confirmed by: Austin Taylor MD 17-Jul-2017 13:34:01
[2017-07-17 15:12] VITALS: BP 136/68
== END 2017-07-17 15:00 | disposition home or self-care (01) ==
LOC: OROUT 10:27
PROVIDERS: ATTEND Surgery
DX: M31.6 Other giant cell arteritis (principal); R51 Headache; I70.8 Atherosclerosis of other arteries; H54.61 Unqualified visual loss, right eye, normal vision left eye; J44.9 Chronic obstructive pulmonary disease, unspecified; I10 Essential (primary) hypertension; Z79.899 Other long term (current) drug therapy; Z79.82 Long term (current) use of aspirin
CPT/HCPCS: 36415; 85027; 80048; 88305 ×2; 93005; 93010; 37609; J2250; J3010; J3490 ×2; J2704; 352

== ENCOUNTER 2017-07-27 04:12 | Inpatient (IN) | payer MEDICARE, BC ==
[2017-07-27] MEDS ORDERED: IPRATROPIUM/ALBUTEROL 0.5-2.5 MG/3 ML AMPUL NEB ONE ×3 (04:19→04:48)
[2017-07-27] MEDS ORDERED: FUROSEMIDE INJ/PF 40 MG/4 ML SDV IV ONE (04:25)
[2017-07-27] MEDS ORDERED: NITROGLYCERIN 0.4 MG/TAB 25 TAB/BOTTLE SL STA (04:26)
[2017-07-27] MEDS ORDERED: FUROSEMIDE INJ/PF 40 MG/4 ML SDV ONE (04:28)
[2017-07-27] MEDS ORDERED: NITROGLYCERIN 0.4 MG/TAB 25 TAB/BOTTLE ONE (04:29)
--- NOTE | 2017-07-27 04:29 | ER Document Report ---
ED General - General Stated Complaint: RESPIRATORY DISTRESS Time Seen by Provider: 07/27/17 04:14 Mode of Arrival: Medic Information source: Patient, Emergency Med Personnel - 20 mg cardizem and neb enroute TRAVEL OUTSIDE OF THE [place] IN LAST 30 DAYS: No - HPI Patient complains to provider of: sob Onset: Just prior to arrival Onset/Duration: Sudden Quality of pain: No pain Severity: Severe Associated symptoms: Shortness of breath, Other - sweaty Exacerbated by: Denies Relieved by: Denies Similar symptoms previously: No Recently seen / treated by doctor: Yes - dxed with pneumonia recently Notes: She has COPD and is on home oxygen at night. Throughout the day today he became increasingly worse. He was on steroids as an outpatient for his COPD. Paramedics state that when he got there patient was in A. fib with RVR which he does not have a history of. He had rhonchi throughout on his physical examination. Patient was given Cardizem and DuoNeb treatment. When he presented here he was on BiPAP. Prior to arrival to the emergency department Blood pressure was 124/70 heart rate was 150s patient was 82%. - Related Data Allergies/Adverse Reactions: No Known Allergies Allergy (Verified 07/27/17 05:11) Past Medical History - General Information source: Patient, Relative - Social History Smoking Status: Former Smoker Frequency of alcohol use: None Drug Abuse: None Lives with: Family Family History: Reviewed & Not Pertinent - Past Medical History Cardiac Medical History: Reports: Hx Hypertension Denies: Hx Coronary Artery Disease, Hx Heart Attack Pulmonary Medical History: Reports: Hx Asthma, Hx Bronchitis, Hx COPD, Hx Pneumonia Neurological Medical History: Denies: Hx Cerebrovascular Accident, Hx Seizures Endocrine Medical History: Reports: None Renal/ Medical History: Reports: None. Denies: Hx Peritoneal Dialysis Malignancy Medical History: Reports None GI Medical History: Reports: None Musculoskeltal Medical History: Reports Hx Arthritis Past Surgical History: Reports: Other - Prostate - Immunizations Hx Diphtheria, Pertussis, Tetanus Vaccination: Yes Hx Pneumococcal Vaccination: 01/09/12 Physical Exam - Vital signs Vitals: Pulse Resp Pulse Ox 114 H 47 H 86 L 07/27/17 04:14 07/27/17 04:14 07/27/17 04:14 - Notes Notes: PHYSICAL EXAMINATION: GENERAL: Patient is in moderate respiratory distress with BiPAP. His skin is clammy to touch. HEAD: Atraumatic, normocephalic. EYES: Pupils equal round and reactive to light, extraocular movements intact, sclera anicteric, conjunctiva are normal. ENT: Nares patent. NECK: Normal range of motion, supple without lymphadenopathy LUNGS: Breath sounds clear to auscultation bilaterally and equal. No wheezes rales or rhonchi. HEART: Irregularly irregular and tachycardic ABDOMEN: Soft, nontender, nondistended abdomen. No guarding, no rebound. No masses appreciated. Musculoskeletal: Normal range of motion, no pitting or edema. No cyanosis. NEUROLOGICAL: Cranial nerves grossly intact. Normal sensory, motor exams PSYCH: Normal mood, normal affect. SKIN: Warm, Dry, normal turgor, no rashes or lesions noted. Course - Re-evaluation Re-evalutation: 07/27/17 04:55 Chest X-Ray 07/27/17 04:15 IMPRESSION: 1. Patchy bibasilar and right upper lung airspace opacity may be related to developing pneumonia. Continued radiographic follow-up to resolution recommended. 07/27/17 05:02 Chemistries hemolyzed. Lab is here drawing them. Patient's family members are here and I have talked to them to let them know what is going on. 07/27/17 05:19 DM that I called the patient's power of privacy attorney Nick was also the patient's son. I explained to him that the patient is on BiPAP. I did explain that if he continues to become fatigued, he may need intubation. I explained that to him. I stated that in light of fact that the patient has COPD as well as pneumonia that one of the battles will be getting him back off this "breathing machine". Nick stated that his father does not want to be intubated as they had had discussions regarding this. His brothers share power of privacy attorney Elvira Romero called them and everyone is in agreement that the father will now be DO NOT INTUBATE. 07/27/17 05:47 Labs- All tests 24 hr 07/27/17 07/27/17 07/27/17 04:15 04:15 04:15 WBC 6.0 RBC 5.52 Hgb 17.3 H Hct 52.1 H MCV 94 MCH 31.4 MCHC 33.3 RDW 14.5 H Plt Count 139 L Total Counted 100 Seg Neutrophils % Not Reportable Seg Neuts % (Manual) 18 L Band Neutrophils % 50 H Lymphocytes % Not Reportable Lymphocytes % (Manual) 13 Atypical Lymphs % 2 Monocytes % Not Reportable Monocytes % (Manual) 8 Eosinophils % Not Reportable Eosinophils % (Manual) 0 Basophils % Not Reportable Basophils % (Manual) 0 Metamyelocytes % 7 H Myelocytes % 1 H Promyelocytes % 1 H Absolute Neutrophils Not Reportable Abs Neuts (Manual) 4.6 Absolute Lymphocytes Not Reportable Abs Lymphs (Manual) 0.9 Absolute Monocytes Not Reportable Abs Monocytes (Manual) 0.5 Absolute Eosinophils Not Reportable Absolute Eos (Manual) 0.0 Absolute Basophils Not Reportable Abs Basophils (Manual) 0.0 Toxic Granulation 1+ Toxic Vacuolation PRESENT Large Platelets PRESENT Platelet Comment DECREASED Polychromasia SLIGHT Anisocytosis SLIGHT PT INR Carbonic Acid HCO3/H2CO3 Ratio ABG pH ABG pCO2 ABG pO2 ABG HCO3 ABG Total CO2 ABG O2 Saturation ABG Base Excess VBG pH VBG pCO2 VBG HCO3 VBG Base Excess FiO2 Sodium Cancelled Potassium Cancelled Chloride Cancelled Carbon Dioxide Cancelled Anion Gap Cancelled BUN Cancelled Creatinine Cancelled Est GFR ( Amer) Cancelled Est GFR (Non-Af Amer) Cancelled Glucose Cancelled Calcium Cancelled Total Bilirubin Cancelled Direct Bilirubin Cancelled Neonat Total Bilirubin Cancelled Neonat Direct Bilirubin Cancelled Neonat Indirect Bili Cancelled AST Cancelled ALT Cancelled Alkaline Phosphatase Cancelled Troponin I Cancelled NT-Pro-B Natriuret Pep Cancelled Total Protein Cancelled Albumin Cancelled 07/27/17 07/27/17 07/27/17 04:15 05:03 05:08 WBC RBC Hgb Hct MCV MCH MCHC RDW Plt Count Total Counted Seg Neutrophils % Seg Neuts % (Manual) Band Neutrophils % Lymphocytes % Lymphocytes % (Manual) Atypical Lymphs % Monocytes % Monocytes % (Manual) Eosinophils % Eosinophils % (Manual) Basophils % Basophils % (Manual) Metamyelocytes % Myelocytes % Promyelocytes % Absolute Neutrophils Abs Neuts (Manual) Absolute Lymphocytes Abs Lymphs (Manual) Absolute Monocytes Abs Monocytes (Manual) Absolute Eosinophils Absolute Eos (Manual) Absolute Basophils Abs Basophils (Manual) Toxic Granulation Toxic Vacuolation Large Platelets Platelet Comment Polychromasia Anisocytosis PT 16.6 H INR 1.28 Carbonic Acid HCO3/H2CO3 Ratio ABG pH ABG pCO2 ABG pO2 ABG HCO3 ABG Total CO2 ABG O2 Saturation ABG Base Excess VBG pH 7.21 L VBG pCO2 81.8 H* VBG HCO3 31.7 VBG Base Excess 0.3 FiO2 Sodium 134.2 L Potassium 4.2 Chloride 90 L Carbon Dioxide 26 Anion Gap 18 BUN 49 H Creatinine 1.74 H Est GFR ( Amer) 45 L Est GFR (Non-Af Amer) 37 L Glucose 226 H Calcium 9.3 Total Bilirubin 2.0 H Direct Bilirubin 0.8 H Neonat Total Bilirubin Not Reportable Neonat Direct Bilirubin Not Reportable Neonat Indirect Bili Not Reportable AST 92 H ALT 101 H Alkaline Phosphatase 75 Troponin I NT-Pro-B Natriuret Pep Total Protein 5.4 L Albumin 2.8 L 07/27/17 05:25 WBC RBC Hgb Hct MCV MCH MCHC RDW Plt Count Total Counted Seg Neutrophils % Seg Neuts % (Manual) Band Neutrophils % Lymphocytes % Lymphocytes % (Manual) Atypical Lymphs % Monocytes % Monocytes % (Manual) Eosinophils % Eosinophils % (Manual) Basophils % Basophils % (Manual) Metamyelocytes % Myelocytes % Promyelocytes % Absolute Neutrophils Abs Neuts (Manual) Absolute Lymphocytes Abs Lymphs (Manual) Absolute Monocytes Abs Monocytes (Manual) Absolute Eosinophils Absolute Eos (Manual) Absolute Basophils Abs Basophils (Manual) Toxic Granulation Toxic Vacuolation Large Platelets Platelet Comment Polychromasia Anisocytosis PT INR Carbonic Acid 1.56 H HCO3/H2CO3 Ratio 16:1 ABG pH 7.32 L ABG pCO2 51.8 H ABG pO2 99.9 ABG HCO3 25.8 ABG Total CO2 27.4 H ABG O2 Saturation 97.0 ABG Base Excess -1.3 VBG pH VBG pCO2 VBG HCO3 VBG Base Excess FiO2 70% Sodium Potassium Chloride Carbon Dioxide Anion Gap BUN Creatinine Est GFR ( Amer) Est GFR (Non-Af Amer) Glucose Calcium Total Bilirubin Direct Bilirubin Neonat Total Bilirubin Neonat Direct Bilirubin Neonat Indirect Bili AST ALT Alkaline Phosphatase Troponin I NT-Pro-B Natriuret Pep Total Protein Albumin - Vital Signs Vital signs: Temp Pulse Resp BP Pulse Ox 102.7 F H 114 H 37 H 105/59 L 89 L 07/27/17 05:01 07/27/17 04:14 07/27/17 05:01 07/27/17 05:01 07/27/17 04:40 - Laboratory Result Diagrams: 07/27/17 04:15 07/27/17 05:08 Laboratory results interpreted by me: 07/27/17 07/27/17 07/27/17 04:15 04:15 04:15 Hgb 17.3 H Hct 52.1 H RDW 14.5 H Plt Count 139 L Seg Neuts % (Manual) 18 L Band Neutrophils % 50 H Metamyelocytes % 7 H Myelocytes % 1 H Promyelocytes % 1 H PT 16.6 H Carbonic Acid ABG pH ABG pCO2 ABG Total CO2 VBG pH VBG pCO2 Sodium Chloride BUN Creatinine Est GFR ( Amer) Est GFR (Non-Af Amer) Glucose Lactic Acid 6.5 H Total Bilirubin Direct Bilirubin AST ALT NT-Pro-B Natriuret Pep Total Protein Albumin 07/27/17 07/27/17 07/27/17 05:03 05:08 05:08 Hgb Hct RDW Plt Count Seg Neuts % (Manual) Band Neutrophils % Metamyelocytes % Myelocytes % Promyelocytes % PT Carbonic Acid ABG pH ABG pCO2 ABG Total CO2 VBG pH 7.21 L VBG pCO2 81.8 H* Sodium 134.2 L Chloride 90 L BUN 49 H Creatinine 1.74 H Est GFR ( Amer) 45 L Est GFR (Non-Af Amer) 37 L Glucose 226 H Lactic Acid Total Bilirubin 2.0 H Direct Bilirubin 0.8 H AST 92 H ALT 101 H NT-Pro-B Natriuret Pep 29056 H Total Protein 5.4 L Albumin 2.8 L 07/27/17 05:25 Hgb Hct RDW Plt Count Seg Neuts % (Manual) Band Neutrophils % Metamyelocytes % Myelocytes % Promyelocytes % PT Carbonic Acid 1.56 H ABG pH 7.32 L ABG pCO2 51.8 H ABG Total CO2 27.4 H VBG pH VBG pCO2 Sodium Chloride BUN Creatinine Est GFR ( Amer) Est GFR (Non-Af Amer) Glucose Lactic Acid Total Bilirubin Direct Bilirubin AST ALT NT-Pro-B Natriuret Pep Total Protein Albumin - Diagnostic Test Radiology reviewed: Image reviewed, Reports reviewed - EKG Interpretation by Me Rhythm: A.Fib - VR 93 Critical Care Note - Critical Care Note Total time excluding time spent on procedures (mins): 30 Comments: 30 minutes of critical care time spent in direct contact evaluating and reevaluating the patient, treating symptoms, reviewing labs and studies and speaking with family and consultants excluding any procedures Discharge - Discharge Clinical Impression: DNI (do not intubate), Atrial fibrillation, Pneumonia, Hypercarbia Disposition: ADMITTED INPATIENT Admitting Provider: Hospitalist - Dr. Marroquin Unit Admitted: ICU Referrals: EVELYN MEEKS MD [Primary Care Provider] - Follow up as needed
--- NOTE | 2017-07-27 04:32 | RADIOLOGY REPORT (SQ) ---
EXAM DESCRIPTION: Single view of the chest CLINICAL HISTORY: sob COMPARISON: None. FINDINGS: Single frontal view of the chest. Atherosclerotic calcification of the aortic arch. Patchy bibasilar and right upper lung airspace opacity. No pneumothorax or large effusion. Low lung volumes. Leads overlie the chest. No acute osseous abnormality. Upper abdominal soft tissues are unremarkable. IMPRESSION: 1. Patchy bibasilar and right upper lung airspace opacity may be related to developing pneumonia. Continued radiographic follow-up to resolution recommended.
[2017-07-27 04:35] LABS: HEMATOCRIT 52.1 % (37.9-51.0); HEMOGLOBIN 17.3 g/dL (13.5-17.0); MEAN CORPUSCULAR HEMOGLOBIN 31.4 pg (27.0-33.4); MEAN CORPUSCULAR HGB CONC 33.3 g/dL (32.0-36.0); MEAN CORPUSCULAR VOLUME 94 fl (80-97); PLATELET COUNT 139 10^3/uL (150-450); RED BLOOD COUNT 5.52 10^6/uL (4.35-5.55); RED CELL DISTRIBUTION WIDTH 14.5 % (11.5-14.0)
[2017-07-27] MEDS ORDERED: AZITHROMYCIN INJ 500 MG VIAL IV ONE (04:40)
[2017-07-27] MEDS ORDERED: CEFTRIAXONE 1 GM/D5W RTU 1 GM/50 ML RTUPB IV ONE (04:40)
[2017-07-27 04:41] LABS: INTERNATIONAL RATION (INR) 1.28; PROTHROMBIN TIME 16.6 SEC (11.4-15.4)
[2017-07-27] MEDS ORDERED: METHYLPREDNISOLONE INJ 125 MG/2 ML SDV IV ONE (04:48)
[2017-07-27 05:07] LABS: ABSOLUTE LYMPHOCYTES# (MANUAL) 0.9 10^3/uL (0.5-4.7); ABSOLUTE MONOCYTES # (MANUAL) 0.5 10^3/uL (0.1-1.4); ABSOLUTE NEUTROPHILS# (MANUAL) 4.6 10^3/uL (1.7-8.2); BASOPHILS % (MANUAL) 0 % (0-2); EOSINOPHILS % (MANUAL) 0 % (0-6); LYMPHOCYTES % (MANUAL) 13 % (13-45); MONOCYTES % (MANUAL) 8 % (3-13); SEGMENTED NEUTROPHILS % (MAN) 18 % (42-78); TOTAL CELLS COUNTED 100
[2017-07-27 05:11] LABS: ANISOCYTOSIS SLIGHT; PLATELET COMMENT DECREASED; PLATELET LARGE PRESENT; POLYCHROMASIA SLIGHT; TOXIC GRANULATION 1+; TOXIC VACUOLATION PRESENT
[2017-07-27 05:13] LABS: BAND NEUTROPHILS % (MANUAL) 50 % (3-5); METAMYELOCYTES % (MANUAL) 7 % (0); MYELOCYTES % (MANUAL) 1 % (0); PROMYELOCYTES % (MANUAL) 1 % (0)
[2017-07-27 05:13] LABS: VENOUS BLOOD BASE EXCESS 0.3 mmol/L; VENOUS BLOOD HCO3 31.7 mmol/L (20-32); VENOUS BLOOD PH 7.21 (7.30-7.42)
[2017-07-27 05:15] LABS: VENOUS BLOOD PCO2 81.8 mmHg (35-63)
[2017-07-27] MEDS ORDERED: ACETAMINOPHEN 650 MG SUPP.RECT PR ONE ×2 (05:28→05:31)
[2017-07-27 05:38] LABS: ALANINE AMINOTRANSFERASE 101 U/L (21-72); ALBUMIN 2.8 g/dL (3.5-5.0); ALKALINE PHOSPHATASE 75 U/L (38-126); ANION GAP 18 (5-19); ASPARTATE AMINO TRANSFERASE 92 U/L (17-59); BILIRUBIN,DIRECT 0.8 mg/dL (0.0-0.4); BLOOD UREA NITROGEN 49 mg/dL (7-20); CALCIUM 9.3 mg/dL (8.4-10.2); CARBON DIOXIDE 26 mmol/L (22-30); CHLORIDE 90 mmol/L (98-107); GLUCOSE 226 mg/dL (75-110); POTASSIUM 4.2 mmol/L (3.6-5.0); SODIUM 134.2 mmol/L (137-145); TOTAL PROTEIN 5.4 g/dL (6.3-8.2)
[2017-07-27 05:40] LABS: ARTERIAL BLOOD BASE EXCESS -1.3 mmol/L; ARTERIAL BLOOD H2CO3 1.56 mmol/L (1.05-1.35); ARTERIAL BLOOD HCO3 25.8 mmol/L (20-26); ARTERIAL BLOOD PCO2 51.8 mmHg (35-45); ARTERIAL BLOOD PH 7.32 (7.35-7.45); ARTERIAL BLOOD PO2 99.9 mmHg (80-100); ARTERIAL BLOOD TOTAL CO2 27.4 mmol/L (23-27)
[2017-07-27 05:42] LABS: ARTERIAL BLOOD FIO2 70%
[2017-07-27 05:55] LABS: TROPONIN I 0.614 ng/mL
[2017-07-27] MEDS ORDERED: ACETAMINOPHEN 650 MG SUPP.RECT PR PRN (06:03)
[2017-07-27] MEDS ORDERED: ONDANSETRON HCL INJ/PF 4 MG/2 ML SDV IV PRN (06:03)
[2017-07-27] MEDS ORDERED: ACETAMINOPHEN 325 MG SUPP.RECT PR ONE (06:06)
--- NOTE | 2017-07-27 06:27 | PDOC H&P ---
History of Present Illness Admission Date/PCP: VEELYN MEEKS, History of Present Illness: LARISSA LOERNZANA JR is a 89 year old male patient brought by EMS for respiratory distress. Since patient has severe respiratory distress, sedated and also on on BiPAP with full facemask he is not source of history. Brief history is obtained from ER attending note. Patient has underlying COPD and chronic respiratory distress which he wears oxygen at night. Since yesterday morning patient become increasingly short of breath despite using his home medications, he has also associated cough productive of greenish sputum. EMS found the patient desaturated with O2 saturation in the lower 80s and also tachycardic with heart rate of 150. His tachycardia is due to atrial fibrillation and patient reportedly does not have history of A. fib. 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 Further detailed history and review of systems is unobtainable. Past Medical History Cardiac Medical History: Reports: Hypertension Denies: Coronary Artery Disease, Myocardial Infarction Pulmonary Medical History: Reports: Asthma, Bronchitis, Chronic Obstructive Pulmonary Disease (COPD), Pneumonia Neurological Medical History: Denies: Seizures Endocrine Medical History: Reports: None Renal/ Medical History: Reports: None Malignancy Medical History: Reports: None GI Medical History: Reports: None Musculoskeltal Medical History: Reports: Arthritis Hematology: Denies: Anemia Past Surgical History Past Surgical History: Reports: Other - Prostate Social History Lives with: Family Smoking Status: Former Smoker Frequency of Alcohol Use: Rare Hx Recreational Drug Use: No Drugs: None Hx Prescription Drug Abuse: No Family History Family History: Reviewed & Not Pertinent Parental Family History Reviewed: Yes Children Family History Reviewed: Yes Sibling(s) Family History Reviewed.: Yes Medication/Allergy Home Medications: Aspirin [Aspirin 81 mg Chewable Tablet] 81 mg PO DAILY 07/07/17 Atenolol [Tenormin] 25 mg PO QHS 07/07/17 Finasteride [Proscar 5 mg Tablet] 5 mg PO QHS 07/07/17 Multivitamin [Tab-A-Marylou] 1 tab PO DAILY 07/07/17 Triamterene/Hydrochlorothiazid [Triamterene-Hctz 37.5-25 mg Tb] 1 tab PO DAILY 07/07/17 Prednisone [Deltasone 20 mg Tablet] 100 mg PO DAILY #60 tablet 07/09/17 Allergies/Adverse Reactions: No Known Allergies Allergy (Verified 07/27/17 05:11) Review of Systems ROS unobtainable: Due to mental status Physical Exam Vital Signs: Temp Pulse Resp BP Pulse Ox 102.7 F H 114 H 37 H 105/59 L 89 L 07/27/17 05:01 07/27/17 04:14 07/27/17 05:01 07/27/17 05:01 07/27/17 04:40 Intake & Output 07/25/17 07/26/17 07/27/17 06:59 06:59 06:59 Weight 82.7 kg General appearance: PRESENT: severe distress Head exam: PRESENT: atraumatic, normocephalic Eye exam: PRESENT: other - Left eye blind due to temporal arteritis Respiratory exam: PRESENT: decreased breath sounds, rhonchi, wheezes - Bilaterally Cardiovascular exam: PRESENT: irregular rhythm, tachycardia GI/Abdominal exam: PRESENT: normal bowel sounds, soft. ABSENT: distended, guarding, mass, organolmegaly, rebound, tenderness Results Laboratory Results: 07/27/17 04:15 07/27/17 05:08 07/27/17 07/27/17 07/27/17 04:15 04:15 04:15 WBC 6.0 RBC 5.52 Hgb 17.3 H Hct 52.1 H MCV 94 MCH 31.4 MCHC 33.3 RDW 14.5 H Plt Count 139 L Seg Neutrophils % Not Reportable Lymphocytes % Not Reportable Monocytes % Not Reportable Eosinophils % Not Reportable Basophils % Not Reportable Absolute Neutrophils Not Reportable Absolute Lymphocytes Not Reportable Absolute Monocytes Not Reportable Absolute Eosinophils Not Reportable Absolute Basophils Not Reportable Carbonic Acid HCO3/H2CO3 Ratio ABG pH ABG pCO2 ABG pO2 ABG HCO3 ABG O2 Saturation ABG Base Excess VBG pH VBG pCO2 VBG HCO3 VBG Base Excess FiO2 Sodium Cancelled Potassium Cancelled Chloride Cancelled Carbon Dioxide Cancelled Anion Gap Cancelled BUN Cancelled Creatinine Cancelled Est GFR ( Amer) Cancelled Est GFR (Non-Af Amer) Cancelled Glucose Cancelled Lactic Acid 6.5 H Calcium Cancelled Total Bilirubin Cancelled AST Cancelled ALT Cancelled Alkaline Phosphatase Cancelled Total Protein Cancelled Albumin Cancelled 07/27/17 07/27/17 07/27/17 05:03 05:08 05:25 WBC RBC Hgb Hct MCV MCH MCHC RDW Plt Count Seg Neutrophils % Lymphocytes % Monocytes % Eosinophils % Basophils % Absolute Neutrophils Absolute Lymphocytes Absolute Monocytes Absolute Eosinophils Absolute Basophils Carbonic Acid 1.56 H HCO3/H2CO3 Ratio 16:1 ABG pH 7.32 L ABG pCO2 51.8 H ABG pO2 99.9 ABG HCO3 25.8 ABG O2 Saturation 97.0 ABG Base Excess -1.3 VBG pH 7.21 L VBG pCO2 81.8 H* VBG HCO3 31.7 VBG Base Excess 0.3 FiO2 70% Sodium 134.2 L Potassium 4.2 Chloride 90 L Carbon Dioxide 26 Anion Gap 18 BUN 49 H Creatinine 1.74 H Est GFR ( Amer) 45 L Est GFR (Non-Af Amer) 37 L Glucose 226 H Lactic Acid Calcium 9.3 Total Bilirubin 2.0 H AST 92 H ALT 101 H Alkaline Phosphatase 75 Total Protein 5.4 L Albumin 2.8 L 07/27/17 07/27/17 04:15 05:08 Troponin I Cancelled 0.614 NT-Pro-B Natriuret Pep Cancelled 90671 H Impressions: Chest X-Ray 07/27/17 04:15 IMPRESSION: 1. Patchy bibasilar and right upper lung airspace opacity may be related to developing pneumonia. Continued radiographic follow-up to resolution recommended. Assessment & Plan - Diagnosis (1) Acute and chronic respiratory failure Qualifiers: Respiratory failure complication: hypercapnia Qualified Code(s): J96.22 - Acute and chronic respiratory failure with hypercapnia Is this a current diagnosis for this admission?: Yes Plan: Admit to ICU Patient started on BiPAP, Solu-Medrol, cefepime and doxycycline and DuoNeb (2) New onset atrial fibrillation Is this a current diagnosis for this admission?: Yes Plan: Currently rate is controlled (3) COPD exacerbation Is this a current diagnosis for this admission?: Yes Plan: As a #1 - Time Time Spent: 30 to 50 Minutes - Inpatient Certification Medical Necessity: Significant Comorbidiites Make Outpatient Treatment Too Risky , Need For Continuous Telemetry Monitoring
[2017-07-27] MEDS ORDERED: PANTOPRAZOLE SODIUM 40 MG VIAL IV ONE (06:30)
[2017-07-27] MEDS ORDERED: DILTIAZEM HCL 120 MG CAP.SR.24H PO ONE (07:00)
[2017-07-27] MEDS ORDERED: EPINEPHRINE INJ 1 MG/10 ML DISP.SYRIN ONE (08:00)
[2017-07-27] MEDS ORDERED: IPRATROPIUM/ALBUTEROL 0.5-2.5 MG/3 ML AMPUL NEB SCH (08:00)
[2017-07-27 08:38] LABS: AMORPHOUS SEDIMENT,URINE TRACE /HPF; APPEARANCE,URINE CLOUDY; BILIRUBIN,URINE NEGATIVE (NEGATIVE); COLOR,URINE AMBER; GLUCOSE, URINE NEGATIVE (NEGATIVE); KETONES,URINE NEGATIVE (NEGATIVE); LEUKOCYTE ESTERASE,URINE SMALL (NEGATIVE); NITRITE,URINE NEGATIVE (NEGATIVE); PROTEIN,URINE >=500 mg/dL (NEGATIVE); URINE SPECIFIC GRAVITY 1.017
[2017-07-27] MEDS ORDERED: DEXTROSE 5%-WATER 250 ML with NOREPINEPHRINE BITARTRATE 4 MG IV PRN ×2 (09:20)
[2017-07-27] MEDS ORDERED: NOREPINEPHRINE BITARTRATE INJ/PF 4 MG/4 ML SDV IV ONE (09:22)
[2017-07-27 09:29] VITALS: BP 74/47
[2017-07-27] MEDS ORDERED: DOXYCYCLINE HYCLATE 100 MG in DEXTROSE 5%-WATER 250 ML IV SCH (10:00)
[2017-07-27] MEDS ORDERED: CEFEPIME 2 GM/D5W RTU 2 GM/50 ML RTUPB IV SCH (10:00)
[2017-07-27] MEDS ORDERED: ENOXAPARIN SODIUM INJ 40 MG/0.4 ML DISP.SYRIN SUBCUT SCH (10:00)
[2017-07-27] MEDS ORDERED: METHYLPREDNISOLONE INJ 40 MG/1 ML SDV IV SCH (12:00)
--- NOTE | 2017-07-27 16:22 | EKG REPORT ---
SEVERITY:- ABNORMAL ECG - ATRIAL FLUTTER RBBB AND LPFB : Confirmed by: Makayla Rodriguez 27-Jul-2017 16:21:18
--- NOTE | 2017-07-27 17:39 | Death Summary ---
Summary Date : 07/27/17 Time of :: 09:44 Autopsy: No Resuscitation Status: Do Not Intubate Primary Care Provider: Dr. Van - Final Diagnosis (1) Sepsis Is this a current diagnosis for this admission?: Yes (2) Acute and chronic respiratory failure Is this a current diagnosis for this admission?: Yes (3) Atrial fibrillation Is this a current diagnosis for this admission?: Yes (4) COPD exacerbation Is this a current diagnosis for this admission?: Yes Hospital Course:: Patient was admitted early this morning with the acute respiratory failure. He was placed on BiPAP. He was also found to be in atrial fibrillation which was apparently of new onset. Patient was septic at presentation. He became male more hypotensive and tachycardic if glucose condition continued to worsen. A code was called but patient was not intubated as he is a DO NOT INTUBATE. He did not respond to CPR measures taken and he at 46.
[2017-07-27] MEDS ORDERED: PANTOPRAZOLE SODIUM 40 MG VIAL IV SCH (22:00)
[2017-07-28] MEDS ORDERED: DILTIAZEM HCL 120 MG CAP.SR.24H PO SCH (10:00)
[2017-07-28 13:22] LABS: PATH REVIEW PATHOLOGIST REVIEWED
== END 2017-07-27 09:44 | disposition left against medical advice (07) | DRG 871 ==
LOC: ER 04:12 → EH 06:14 → ICU 09:42
PROVIDERS: ADMIT Internal Medicine; ATTEND Internal Medicine
PROC: 5A09357 Assistance with Respiratory Ventilation, Less than 24 Consecutive Hours, Continuous Positive Airway Pressure (ICD-10-PCS; principal; 2017-07-27)
PROC: 5A12012 Performance of Cardiac Output, Single, Manual (ICD-10-PCS; 2017-07-27)
PROC: 3E0F73Z Introduction of Anti-inflammatory into Respiratory Tract, Via Natural or Artificial Opening (ICD-10-PCS; 2017-07-27)
DX: A41.9 Sepsis, unspecified organism (principal); J96.22 Acute and chronic respiratory failure with hypercapnia; J44.1 Chronic obstructive pulmonary disease with (acute) exacerbation; I48.91 Unspecified atrial fibrillation; Z66 Do not resuscitate; H54.62 Unqualified visual loss, left eye, normal vision right eye; M31.6 Other giant cell arteritis; M19.90 Unspecified osteoarthritis, unspecified site; Z87.891 Personal history of nicotine dependence; Z79.899 Other long term (current) drug therapy
CPT/HCPCS: 36415; 71045; 80053; 81001; 82803; 83605; 83880; 84484; 85025; 85610; 87040; 87077; 87186; 93005; 93010; 94660; 99291; J0171; J0456; J0696; J1940; J2930; J3490; J7060; J7620